=== PATIENT | male | born 1960 | race Caucasian/White ===

== ENCOUNTER 2018-11-10 05:47 | Emergency (ER) | payer OTHER ==
[~2018-11-10] VITALS: Ht 182.9 cm; Wt 68.2 kg
[2018-11-10 06:20] LABS: BASO # 0.1 (0.0-0.2); BASO % 0.3 % (0.0-2.0); EOS % 0.1 % (0-4.0); GRAN # 16.1 (1.4-6.5); GRAN % 83.1 % (42.2-75.2); INR 1.1 (0.8-3.0); LYMPH # 1.6 (1.2-3.4); LYMPH % 8.3 % (20.0-51.0); MEAN CELL VOLUME 91 fl (80.0-100.0); MEAN CORPUSCULAR HGB CONC 34 g/dl (33.0-37.0); MEAN PLATELET VOLUME 12.5 fl (7.4-10.4); MONO # 1.4 (0.1-0.6); MONO % 7.4 % (1.7-9.3); PLATELET COUNT 195 K/mm3 (130-400); PROTHROMBIN TIME 12.9 SECONDS (9.7-12.8); RED BLOOD COUNT 6.19 M/mm3 (4.20-5.60); REDCELL DISTRIBUTION WIDTH-CV 14.5 % (11.5-14.5)
[2018-11-10 06:21] LABS: HEMATOCRIT 56.2 % (42.0-52.0); HEMOGLOBIN 19.1 g/dl (13.5-18.0); MEAN CORPUSCULAR HEMOGLOBIN 31 pg (27.0-31.0)
[2018-11-10 06:23] LABS: PARTIAL THROMBOPLASTIN TIME 39.4 SECONDS (26.0-37.0)
[2018-11-10 06:28] LABS: ALBUMIN 4.3 gm/dL (3.5-5.0); BILIRUBIN,TOTAL 3.1 mg/dL (0.0-1.0); CREATININE, serum 3.33 (0.66-1.25); POTASSIUM 4.1 mmol/L (3.4-5.0); TOTAL PROTEIN 7.7 gm/dL (6.4-8.2)
[2018-11-10 06:32] LABS: MAGNESIUM 2.6 mg/dL (1.6-2.3)
[2018-11-10 06:35] VITALS: TEMP 95.9
[2018-11-10 06:43] LABS: TROPONIN-I 6.51 ng/mL (0.000-0.035)
[2018-11-10 08:00] VITALS: BP 107/76; PULSE 69
== END 2018-11-10 08:00 | disposition short-term general hospital (02) ==
LOC: COL.ER 05:47
PROVIDERS: Emergency Medicine
DX: I21.9 Acute myocardial infarction, unspecified (principal); R57.0 Cardiogenic shock; N19 Unspecified kidney failure; F17.210 Nicotine dependence, cigarettes, uncomplicated
CPT/HCPCS: J0282; J1644; J1940; J2185; J2250; J2310; J3010; J7030; J7060

== ENCOUNTER 2019-01-15 14:38 | Outpatient (RCR) | payer OTHER | END 2019-01-15 16:00 | disposition home or self-care (01) | LOC: COL.CR 14:38 | DX: I21.9 Acute myocardial infarction, unspecified (principal) ==

== ENCOUNTER 2019-02-24 14:59 | Outpatient (RCR) | payer SELFPAY | END 2019-04-18 | disposition home or self-care (01) | LOC: COL.CR | DX: Z02.89 Encounter for other administrative examinations (principal) ==